=== PATIENT | male | born 1945 | race Two or more races ===

== ENCOUNTER 2017-10-22 18:47 | Inpatient (IN) | payer MEDICARE, MEDICAID ==
[~2017-10-22] VITALS: Ht 182.9 cm; Wt 97.5 kg
[~2017-10-22 18:47] MED LIST: FURO20TA; GLYB1.25; METF-370; METO50TA15; OME20GT; POTA12PO2
[2017-10-22 21:12] LABS: Basophils # (auto) 0 uL; Basophils % (auto) 0.1 % (0.0-2.0); Eosinophils # (auto) 0 uL; Hematocrit 22.7 % (41.0-53.0); Hemoglobin 7.2 g/dL (13.5-17.5); Mean Corpuscular Hgb Conc. 31.7 g/dL (32.0-36.0); Mean Corpuscular Volume 86.6 fL (80.0-100.0); Nucleated Red Blood Cells % 0.1 %; Red Blood Cells 2.62 10^6/uL (4.5-5.90)
[2017-10-22 21:14] LABS: Lymphocytes # (auto) 0.6 uL; Lymphocytes % (auto) 3.4 % (10.0-50.0); Mean Corpuscular Hemoglobin 27.4 pg (28.0-32.0); Monocytes # (auto) 0.8 uL; Monocytes % (auto) 5.1 % (0.0-12.0); Neutrophils # (auto) 15.1 uL; Neutrophils % (auto) 91.4 % (37.0-80.0); Red Cell Distribution Width 17.2 % (11.8-14.3); White Blood Cell 16.6 10^3/uL (4.4-10.8)
[2017-10-22 21:17] LABS: Platelet Count (auto) 140 10^3/uL (140-450)
[2017-10-22 21:29] LABS: INR 1.11 (0.9-1.15); Partial Thromboplastin Time 28.4 sec (22.64-33.71); Prothrombin Time 12.1 sec (9.37-12.3)
[2017-10-22 21:32] LABS: Lactic Acid w/Reflex 2.7 mmol/L (0.4-2.0)
[2017-10-22 21:35] LABS: Alanine Aminotransferase 36 U/L (16-61); Albumin 2.8 g/dL (3.4-5.0); Alkaline Phosphatase 105 U/L (45-117); Amylase 24 U/L (25-115); Anion Gap 10 (5-15); Aspartate Aminotransferase 35 U/L (15-37); BUN/Creatinine Ratio 18.3; Bilirubin, Total 1.9 mg/dL (0.2-1.0); Blood Urea Nitrogen 21 mg/dL (7-18); Calcium 7.1 mg/dL (8.5-10.1); Carbon Dioxide 23 mmol/L (21-32); Chloride 104 mmol/L (98-107); GFR African American 80 mL/min; GFR Non-African American 66 mL/min; Glucose 150 mg/dL (74-106); Lipase 66 U/L (73-393); Magnesium 2.4 mg/dL (1.6-2.6); Potassium 4.6 mmol/L (3.5-5.1); Sodium 137 mmol/L (136-145); Total Protein 6.3 g/dL (6.4-8.2)
[2017-10-23] VITALS (7 sets, daily range): BP systolic 99–106; BP diastolic 54–68
[2017-10-23] MEDS: SODIUM CHLORIDE 0.9% 1,000 ML IV SCH ×3 (02:15→20:49)
[2017-10-23] MEDS ORDERED: VANCOMYCIN PER PHARMACY 0 MG IV SCH (02:15)
[2017-10-23] MEDS ORDERED: DEXTROSE (50%) 50ML SYRG IV PRN (02:15)
[2017-10-23] MEDS ORDERED: MORPHINE SULFATE 4 MG/ML SYR/VIAL IV PRN (02:45)
[2017-10-23] MEDS ORDERED: ACETAMINOPHEN 500 MG TAB PO PRN (02:45)
[2017-10-23] MEDS ORDERED: ONDANSETRON HCL 4 MG/2 ML VIAL IV PRN (02:45)
[2017-10-23] MEDS ORDERED: VANCOMYCIN 1GM/250ML 250 ML IV ONE (02:45)
[2017-10-23 02:52] LABS: Basophils # (auto) 0 uL; Basophils % (auto) 0.2 % (0.0-2.0); Eosinophils # (auto) 0 uL
[2017-10-23 02:54] LABS: Hematocrit 19.8 % (41.0-53.0); Lymphocytes # (auto) 0.9 uL; Lymphocytes % (auto) 7.9 % (10.0-50.0); Mean Corpuscular Hemoglobin 27.9 pg (28.0-32.0); Mean Corpuscular Hgb Conc. 32.7 g/dL (32.0-36.0); Mean Corpuscular Volume 85.4 fL (80.0-100.0); Monocytes % (auto) 8.7 % (0.0-12.0); Neutrophils # (auto) 9.2 uL; Neutrophils % (auto) 83.2 % (37.0-80.0); Nucleated Red Blood Cells % 0.1 %; Platelet Count (auto) 114 10^3/uL (140-450); Red Blood Cells 2.32 10^6/uL (4.5-5.90)
[2017-10-23] MEDS ORDERED: IOHEXOL 350 MG/ML 100ML IJ ONE (02:58)
[2017-10-23 03:10] LABS: Albumin 2.9 g/dL (3.4-5.0); BUN/Creatinine Ratio 20.9; Calcium 7.6 mg/dL (8.5-10.1); Potassium 4.6 mmol/L (3.5-5.1)
[2017-10-23 03:13] LABS: Bilirubin, Total 1.7 mg/dL (0.2-1.0); Total Protein 6.1 g/dL (6.4-8.2)
[2017-10-23 03:24] LABS: Hemoglobin 6.5 g/dL (13.5-17.5)
[2017-10-23] MEDS: ACCU-CHEK COMFORT CURVE STRIP VI SCH ×3 (06:00→19:01)
[2017-10-23] MEDS ORDERED: PIPERACILLIN-TAZOB 3.375GM 50 ML IV SCH (06:00)
[2017-10-23] MEDS: InsuLIN REG 1unit/0.01ml Soln (100units/ml) SC SCH ×3 (06:00→18:00)
[2017-10-23] MEDS: HYDROcodone-ACET 5/325MG TAB PO PRN ×2 (09:01→13:25)
[2017-10-23] MEDS: PIPERACILLIN-TAZOB 3.375GM 50 ML IV SCH ×3 (09:33→22:00)
[2017-10-23] MEDS ORDERED: PNEUMOCOCCAL VACC POLYS 25 MCG/0.5 ML VIAL IM ONE (11:45)
[2017-10-23] MEDS ORDERED: VANCOMYCIN 1GM/250ML 250 ML IV SCH (15:00)
[2017-10-24] MEDS: ACCU-CHEK COMFORT CURVE STRIP VI SCH
[2017-10-24] MEDS: InsuLIN REG 1unit/0.01ml Soln (100units/ml) SC SCH
== END 2017-10-24 01:00 | disposition short-term general hospital (02) | DRG 920 ==
LOC: ER 18:47 → EDUNIT# 18:47 → EDBD 18:47 → TELE 18:48 → TELE-WESTW 10-23 09:03
PROVIDERS: ADMIT Nurse Practitioner Family; ATTEND Internal Medicine
PROC: 30233N1 Transfusion of Nonautologous Red Blood Cells into Peripheral Vein, Percutaneous Approach (ICD-10-PCS; principal; 2017-10-23)
DX: K91.871 Postprocedural hematoma of a digestive system organ or structure following other procedure (principal); D62 Acute posthemorrhagic anemia; E44.0 Moderate protein-calorie malnutrition; I11.0 Hypertensive heart disease with heart failure; R65.10 Systemic inflammatory response syndrome (SIRS) of non-infectious origin without acute organ dysfunction; I50.9 Heart failure, unspecified; J44.9 Chronic obstructive pulmonary disease, unspecified; D50.0 Iron deficiency anemia secondary to blood loss (chronic); E11.9 Type 2 diabetes mellitus without complications; D72.829 Elevated white blood cell count, unspecified; K21.9 Gastro-esophageal reflux disease without esophagitis; Y83.8 Other surgical procedures as the cause of abnormal reaction of the patient, or of later complication, without mention of misadventure at the time of the procedure; Y82.8 Other medical devices associated with adverse incidents; R74.8 Abnormal levels of other serum enzymes; Z23 Encounter for immunization; Z79.84 Long term (current) use of oral hypoglycemic drugs; Z87.891 Personal history of nicotine dependence; Z90.49 Acquired absence of other specified parts of digestive tract; Z79.899 Other long term (current) drug therapy; Y92.89 Other specified places as the place of occurrence of the external cause
CPT/HCPCS: 36415; 36430; 70450; 71045; 71275; 74176; 80053; 82150; 82962; 83036; 83605; 83690; 83735; 84484; 85018; 85025; 85379; 85610; 85730; 86850; 86900; 86901; 86920; 87040; 87081; 93005; 96365; J2543

== ENCOUNTER 2019-12-04 09:51 | Emergency (ER) | payer MEDICARE, MEDICAID ==
[~2019-12-04] VITALS: Ht 165.1 cm; Wt 84.8 kg
[~2019-12-04 09:51] MED LIST changes: +FURO1TAB33; -FURO20TA
[2019-12-04 10:16] VITALS: BP 119/71
== END 2019-12-04 10:43 | disposition home or self-care (01) ==
LOC: ER 09:51
DX: J20.9 Acute bronchitis, unspecified (principal); I11.0 Hypertensive heart disease with heart failure; I50.9 Heart failure, unspecified; E11.9 Type 2 diabetes mellitus without complications; K21.9 Gastro-esophageal reflux disease without esophagitis; Z90.49 Acquired absence of other specified parts of digestive tract; Z87.891 Personal history of nicotine dependence
CPT/HCPCS: 71046

== ENCOUNTER 2022-10-01 06:28 | Emergency (ER) | payer MEDICARE, MEDICAID ==
[~2022-10-01] VITALS: Ht 162.6 cm; Wt 81.7 kg
[2022-10-01 07:25] LABS: Hematocrit 37.9 % (41.0-53.0); Hemoglobin 12.6 g/dL (13.5-17.5); Mean Corpuscular Hemoglobin 29.5 pg (28.0-32.0); Mean Corpuscular Hgb Conc. 33.1 g/dL (32.0-36.0); Mean Corpuscular Volume 88.9 fL (80.0-100.0); Red Blood Cells 4.26 10^6/uL (4.5-5.90); Red Cell Distribution Width 16.2 % (11.8-14.3); White Blood Cell 2.3 10^3/uL (4.4-10.8)
[2022-10-01 07:32] LABS: Basophils % (manual) 0 (0.0-2.0); Blast Cells 0; Eosinophils % (manual) 0 (0-7); Metamyelocytes % 0; Myelocytes % 0; Promyelocytes % 0; Reactive Lymphocytes 0
[2022-10-01 07:36] LABS: Partial Thromboplastin Time 26.5 sec (24.6-33.4)
[2022-10-01 07:38] LABS: Albumin 3.6 g/dL (3.4-5.0); Calcium 8.3 mg/dL (8.5-10.1); Potassium 4.2 mmol/L (3.5-5.1)
[2022-10-01 07:41] LABS: BUN/Creatinine Ratio 26.3
[2022-10-01 07:43] LABS: Bilirubin, Total 1.5 mg/dL (0.2-1.0); Total Protein 6.5 g/dL (6.4-8.2)
[2022-10-01 08:28] LABS: Band Neutrophils % (manual) 1; Lymphocytes % (manual) 20 (10.0-50.0); Monocytes % (manual) 4 (0-12)
[2022-10-01 09:40] LABS: Urine Bacteria NONE SEEN /hpf (None Seen); Urine Blood 3+ /uL (Negative); Urine Specific Gravity 1.018 (1.001-1.035); Urine WBC <1 /hpf (0 - 3)
[2022-10-01] MEDS ORDERED: CEFD300C2 PO (11:48)
[2022-10-01 12:26] VITALS: BP 133/70
== END 2022-10-01 12:27 | disposition home or self-care (01) ==
LOC: ER 06:28
DX: K62.89 Other specified diseases of anus and rectum (principal); R31.9 Hematuria, unspecified
CPT/HCPCS: 36415; 80053; 81001; 85007; 85027; 85610; 85730; 86850; 86900; 86901